=== PATIENT | male | born 2000 | race Caucasian/White ===

== ENCOUNTER 2021-03-09 18:01 | Emergency (ER) | payer OTHER ==
[~2021-03-09] VITALS: Ht 175.3 cm; Wt 80.7 kg
[2021-03-09 18:13] VITALS: BP 123/78
[2021-03-09] MEDS ORDERED: TETanus/Pertussis (Acell)/Diphther VAC/PF (Tdap-Adult) 0.5ml syringe IMVAC ONE (18:45)
[2021-03-09] MEDS ORDERED: cephalexin 500mg capsule PO ONE (18:45)
[2021-03-09] MEDS ORDERED: CEPH250T PO (18:48)
[2021-03-09] MEDS ORDERED: LIDOcaine 1% W/epiNEPHrine 1:200,000 10ml vial IJ ONE (18:50)
[2021-03-09] MEDS ORDERED: diphenhydrAMINE 25mg capsule PO ONE (19:20)
== END 2021-03-09 19:44 | disposition home or self-care (01) ==
LOC: ER 18:04
DX: S01.112A Laceration without foreign body of left eyelid and periocular area, initial encounter (principal); T63.461A Toxic effect of venom of wasps, accidental (unintentional), initial encounter; Z79.2 Long term (current) use of antibiotics; Z20.3 Contact with and (suspected) exposure to rabies; W01.0XXA Fall on same level from slipping, tripping and stumbling without subsequent striking against object, initial encounter; Y93.89 Activity, other specified; Y92.89 Other specified places as the place of occurrence of the external cause; Y99.8 Other external cause status
CPT/HCPCS: 12013; 90471; 90715; 99283; Q0163